=== PATIENT | male | born 1975 | race Two or more races ===

== ENCOUNTER 2016-08-08 18:42 | Emergency (ER) | payer OTHER ==
[~2016-08-08] VITALS: Ht 175.3 cm; Wt 108.9 kg
[2016-08-08] MEDS ORDERED: TdaP Vaccine 0.5ml Syr IM ONE (19:15)
[2016-08-08] MEDS ORDERED: Bacitracin Oint UD TOPIC ONE (19:15)
[2016-08-08] MEDS ORDERED: Lidocaine 1% 10mg/ml/Epi 0.005mg/ml 30ml vial INJ ONE (19:15)
[2016-08-08] MEDS ORDERED: BACITRACIN1 APPLIC TOPIC (20:56)
[2016-08-08] MEDS ORDERED: IBUPROFEN600 MG ORAL (20:56)
[2016-08-08 21:38] VITALS: BP 148/72
[2016-08-08 21:40] VITALS: BP 148/72
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
== END 2016-08-08 21:41 | disposition home or self-care (01) ==
LOC: EDBD 18:42 → EMR 19:39
DX: S41.112A Laceration without foreign body of left upper arm, initial encounter (principal); S61.412A Laceration without foreign body of left hand, initial encounter; X99.8XXA Assault by other sharp object, initial encounter; Y92.512 Supermarket, store or market as the place of occurrence of the external cause; Z23 Encounter for immunization
CPT/HCPCS: 90471; 90715